=== PATIENT | male | born 1960 | race Caucasian/White ===

== ENCOUNTER 2024-03-08 07:40 | Outpatient (REF) | payer OTHER, SELFPAY ==
[2024-03-08 13:21] LABS: MANUAL DIFF FLAG NO
[2024-03-08 13:51] LABS: Basophils Absolute Auto 0.1 X10*3/uL (0.0-0.2); Basophils Percent Auto 2.7 % (0-2); Eosinophils Absolute Auto 0.2 X10*3/uL (0.0-0.4); Eosinophils Percent Auto 4.6 % (0-4); Hematocrit 45.3 % (42.0-52.0); Hemoglobin 15.1 g/dl (14.0-18.0); Imm Gran Abs Auto 0.02 X10*3/uL (0.00-0.03); Imm Gran Pct Auto 0.4 % (0.0-0.4); Lymphocytes Percent Auto 38.8 % (20-40); Mean Corpuscular HGB Conc 33.3 g/dl (31.0-36.0); Mean Corpuscular Hemoglobin 31.6 pg (27.0-33.0); Mean Corpuscular Volume 94.8 fL (80.0-98.0); Mean Platelet Volume 11.4 fL (9.4-12.4); Monocytes Absolute Auto 0.4 X10*3/uL (0.1-1.2); Monocytes Percent Auto 6.8 % (2-11); Neutrophils Absolute Auto 2.4 x10*3/uL (2.0-8.3); Neutrophils Percent Auto 46.7 % (45-73); Platelet Count 215 X10*3/uL (160-400); Red Blood Count 4.78 X10*6/uL (4.60-5.80); White Blood Count 5.2 X10*3/uL (4.8-10.8)
[2024-03-08 14:11] LABS: Alanine Aminotransferase 22 U/L (0-40); Albumin Level 4.2 g/dL (3.5-5.0); Alkaline Phosphatase 80 U/L (39-117); Anion Gap 9 (12-20); Aspartate Amino Transferase 21 U/L (5-37); Bilirubin Total 0.5 mg/dL (0.0-1.0); Blood Urea Nitrogen 25 mg/dL (9-16); Calcium 9.1 mg/dL (8.4-10.2); Carbon Dioxide 30 mmol/L (22-29); Chloride 107 mmol/L (96-108); Cholesterol 241 mg/dL (<200); Estimated Glomerular Filt Rate > 60; Glucose Random 87 mg/dL (60-115); HDL Cholesterol 58 mg/dL (>40); LDL Cholesterol Calculated 159 mg/dL (<100); Potassium 4.4 mmol/L (3.3-5.1); Sodium 142 mmol/L (135-145); Total Protein 6.7 g/dL (6.5-8.0); Triglycerides 124 mg/dL (<150)
[2024-03-08 14:31] LABS: Vitamin D 25-OH Total 28.9 ng/mL (>30)
== END 2024-03-08 07:41 | disposition home or self-care (01) ==
LOC: HO.MANLDS 07:40
PROVIDERS: Visit Provider Internal Medicine
DX: Z12.5 Encounter for screening for malignant neoplasm of prostate (principal); Z00.00 Encounter for general adult medical examination without abnormal findings; Z13.89 Encounter for screening for other disorder
CPT/HCPCS: 36415; 80053; 80061; 82306; 84153; 85025

== ENCOUNTER 2025-01-10 07:53 | Outpatient (AMB) | payer OTHER, SELFPAY ==
--- OUTSIDE RECORDS SUMMARY | 2025-01-10 07:57 | XMS_ITS | Data Portability ---
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) MDM MODERATE MUST MEET 2 OUT OF 3 ELEMENTS: PROBLEMS, DATA OR RISK ELEMENT 1: PROBLEMS ADDRESSED 1 OR MORE CHRONIC ILLNESS WITH EXACERBATION OR 2 OR MORE STABLE CHRONIC ILLNESSES OR 1 UNDIAGNOSED NEW PROBLEM OR 1 ACUTE ILLNESS W/SYMPTOMS OR 1 ACUTE COMPLICATED INJURY ELEMENT 2: DATA MUST MEET 1 OF 3 CATEGORIES CATEGORY 1: REVIEW OF PRIOR EXTERNAL NOTES, REVIEW OF RESULTS, ORDERING OF EACH TEST, ASSESSMENT REQUIRING INDEPENDENT HISTORIAN OR CATEGORY 2: INDEPENDENT INTERPRETATION OF TESTS BY ANOTHER PHYSICIAN OR SPECIALIST OR CATEGORY 3: DISCUSSION OF MGT OR TEST INTERPRETATION W/EXTERNAL PHYSICIAN OR SPECIALIST ELEMENT 3: RISK RISK OF COMPLICATIONS AND/OR MORBIDITY OR MORTALITY OF PATIENT MANAGEMENT PROVIDER MUST THOROUGHLY DOCUMENT EACH ELEMENT THAT IS COVERED Not available 03/03/2024 10:07:40 Plan of Treatment Reminders Order Date Submit Date Provider Last Modified By Organization Details Last Modified Time Details Appointments ANNUA L EXAM 2024 11:30A M DR CONNELLY Not available Not available Not available Lab CMP, serum or plasm a 2023 024 [facility], [address] [place] [address], [place], [address], 03/09/2024 11:09:37 PSA, serum or plasm a 2023 024 [facility], [address] [place] [address], [id number], 03/09/2024 11:09:37 CBC w/ auto diff 2023 024 [facility], [address] [place] [address], [place], [address], 03/09/2024 11:09:38 lipid panel , blood 2023 024 [facility], [address] [place] [address], [address], 03/09/2024 11:09:37 vitam in D, 25-hy droxy , total , serum 2023 024 [facility], [address] [place] [address], [place], [address], 03/09/2024 11:09:37 Referral gastr flakita russo ist refer ral 2023 024 [facility], [address] [place] [address], [facility], [place], [address], 04/03/2024 08:07:48 Procedures None recor ded. Surgeries None recor ded. Imaging CT, heart , w/o contr ast, w/ coron dez calci um score 2023 [facility], [facility] [place], [address], 03/15/2024 08:53:53 Medication Orders napro xen 500 mg table t 2019 020 [id number], [address], [place], [id number], 03/08/2020 15:35:53 Patient TargetsNo targets recorded. Patient Instructions Encounter Date Encounter Id Patient Instructions Last Modified By Organization Details Last Modified Time 11/01/2019 [id number] calf strain: rehab exercises [email or web address] Not available 11/01/2019 10:56:12 03/03/2024 [id number] colonoscopy: before your procedure Not available 03/03/2024 10:14:55 colonoscopy: wha t to expect at home Not available 03/03/2024 10:14:55 Reason for Referral [facility] Referral for Screening for malignant neoplasm of colon screening colonoscopy Referring Physician: Amilcar Connelly, Internal Medicine, Encounter Date: 03/03/2024 Results Created Date Observation Date Name Description Value Unit Range Abnormal Flag Note LastModifiedBy Organization Detail LastModifiedTime 04/18/20 24 04/17/2024 CT, heart , w/o contr ast, w/ coron dez calci um score No observ ation record ed. [email or web address] Not Available 10/2023 10:23:31 Result Notes None recorded. Problems Name Problem SNOMED Code Status Onset Date Resolution Date Notes Provider Name and Address Organization Details Recorded Time Tinnitus of right ear 602924464910 8 Active 2023 Amilcar Connelly, [address], [address], [facility] 10:09:35 Problem Notes None recorded. Procedures Surgical History Date Name Laterality Status Provider Name and Address Organization Details Recorded Time 020 Arthrocentesis Major Joint/Bursa completed Amilcar Connelly [address], [place], [address], [facility] 03/08/2020 16:16:26 020 Arthrocentesis Major Joint/Bursa completed December Ryanne [address], [address], [facility] 12/27/2019 10:17:59 Imaging Results Imaging Date Name Status LastModified by Organiz ation Details LastModified Time 04/17/2024 CT, heart, w/o contrast, w/ coronary calcium score completed [email or web address] Information not available 04/21/2024 10:23:31 Procedure Notes None recorded. Medical Equipment None Reported. Allergies No known drug allergies Medications Name Sig Start Date Stop Date Status Note LastModified by Organization Details LastModified Time naproxen 500 mg tablet Take 1 tablet twice a day by oral route for 10 days. 2019 completed Not Available Not Available Not Available vit B complex 100 combo no.2 active Not Available Not Available Not Available Vitals Date Recorded Body height Body mass index (BMI) Body weight Heart rate Oxygen saturation Oxygen saturation in Arterial blood by Pulse oximetry Systolic blood pressure Diastolic blood pressure Provider Name and Address Organization Details Last Updated DateTime 0 179.07 cm 29.8 kg/m2 30717.9 9 g 68 /min 98 % 98 % 130 mm[Hg] 72 mm[Hg] Giselle Syed [facility] 0 10:34:21 Date Recorded Body height Body mass index (BMI) Body weight Heart rate Oxygen saturation Oxygen saturation in Arterial blood by Pulse oximetry Systolic blood pressure Diastolic blood pressure Provider Name and Address Organization Details Last Updated DateTime 0 179.07 cm 30.5 kg/m2 53912.8 7 g 62 /min 98 % 98 % 130 mm[Hg] 72 mm[Hg] Viktoriya Griffin [facility] 0 09:35:58 Date Recorded Body height Provider Name an d Address Organization Details Last Updated DateTime 03/08/2020 179.07 cm Sukh Rossi O [address] [place] [address], [phone], [facility] 03/08/2020 15:35:43 Date Recorded Body height Body mass index (BMI) Body weight Heart rate Respiratory rate Oxygen saturation Oxygen saturation in Arterial blood by Pulse oximetry Systolic blood pressure Diastolic blood pressure Provider Name and Address Organization Details Last Updated DateTime 4 180.34 cm 29.1 kg/m2 48151.8 1 g 57 /min 16 /min 97 % 97 % 138 mm[Hg] 80 mm[Hg] Pantera Goodman [facility] 4 09:24:14 Social History Question Answer Notes LastModified by Organizat ion Details LastModified Time Tobacco Smoking Status Never Smoker Not Available [facility] 07/23/2020 03:36:24 What Is Your Level Of Alcohol Consumption? Occasional Information not available 03/03/2024 What Was The Date Of Your Most Recent Tobacco Screening? 03/03/2024 Information not available 03/03/2024 Sex: Unknown Functional Status None recorded. Mental Status None recorded. Family History Nothing Reported. Medical History No medical history recorded. Immunizations Vaccine Type Date Status Note Provider Nam e and Address Organization Details Recorded Time COVID-19, mRNA, LNP-S, PF, 30 mcg/0.3 mL dose 08/06/2021 completed Amilcar Connelly, Sukh O [address] [place], [address], [facility] 08/07/2021 18:37:52 Past Encounters Encounter ID Performer Location Encounter Start Date Encounter Closed Date Diagnosis/Indication Diagnosis SNOMED-CT Code Diagnosis ICD10 Code Diagnosis Note [id number] [facility] [address] [facility] [address] 11/01/2019 10:27:40 11/01/2019 10:59:31 Pain of left calf 6284030926 820856 M79.662 Strain of calf muscle 28 6856625 S86.111A aggressive resting icing and NSAIDS consider PT in a couple weeks if not improving [id number] [facility] [address] [facility],[place] [address] 12/27/2019 09:29:35 12/27/2019 10:38:10 Bursitis of knee 024627581 M70.50 rice [id number] Amilcar Connelly [address],[place] [address] 03/08/2020 15:22:18 03/08/2020 16:20:26 Prepatellar bursitis of left knee 8441874707 21184 M70.42 tolerated procedure very well wound infection precaution s given [id number] Amilcar Connelly [facility] Internal [facility] [address] [facility],[place] [address] 03/03/2024 09:13:17 03/03/2024 10:21:04 Depression screening 276842203 Z13.31 Tinnitus of right ear 48 66767959 108 H93.11 consider referral to [facility] Adult [facility] th examination 319606622 Z00.00 Screening for malignant neoplasm of colon 198462534 Z12.11 Health Concerns Section Related Observation LastModified by Organization Detai ls LastModified Time None Recorded Concern Status LastModified by Organization Details LastModified Time None Recorded Advance Directives Directive None Recorded Payers Encounter Date Sequence Insurance Name Policy Number Policy De Paz Covered Member ID De Paz Member ID Guarantor Name 11/01/2019 1 [facility] [id number] Gabriel Colbyond [id number] Gabriel Méndez Gelacio 12/27/2019 1 [facility] [id number] Gabriel Brizuela [id number] Gabriel Brizuela 03/08/2020 1 [facility] [id number] Gabriel Colbyond [id number] Gabriel Brizuela 03/03/2024 1 [facility] DIRECT CONNECTORC[facility] TYPE I (HMO) [id number] Gabriel Brizuela [id number] Gabriel Brizuela Notes Date Note Type Note Provider Name a nd Address Organization Details Recorded Time 11/01/2019 text/html c/o left calf pain x started a week ago while skiing, hit some heavy snow and bidings released, and felt the pain instantly. went to the urgent care the next day and they dx'd him with a calf strain, told him to rest and ice it. no meds rx'd no imaging done. still having the calf pain, swelling hasn't improved, there is some bruising since wednesday, down in the ankle, pain in the posterior mid calf area. trying to rest it, still able to walk on it, but there is some discomfort depending on how fast he is walking 12 system ROS negative except where noted above- denies: chest pain, palpitations, sob, ankle swelling, visual problems, hearing problems, muscle aches or pains, numbness or tingling extremities, abdominal pain, bowel issues, bladder issues, sexual dysfunction, abnormal bleeding, sx of sinus/respirator y infection , headaches, dizziness/lighth eadedness, rashes, or nail changes. December ASHLI Pearl [address] [place] [address], [phone], [facility] 11/01/2019 10:58:26 12/27/2019 text/html left knee swelling, fell, at one point had some pain, none anymore 12 system ROS negative except where noted above- denies: chest pain, palpitations, sob, ankle swelling, visual problems, hearing problems, muscle aches or pains, numbness or tingling extremities, abdominal pain, bowel issues, bladder issues, sexual dysfunction, abnormal bleeding, sx of sinus/respirator y infection , headaches, dizziness/lighth eadedness, rashes, or nail changes. ASHLI Grewal [address] [place], [address], [facility] 12/27/2019 10:18:55 03/08/2020 text/html here for drainage of his left knee bursitis pt relates that this has happened in the past and is back again after kneeling on it felt a funny twinge in it and 2 days later became very swollen and sl tender relates that he is notably more swollen now than before Amilcar Connelly DO [address] [place], [address], [facility] 03/08/2020 16:18:59 03/03/2024 text/html here for a check up no major problems and does not have any major pmhx nor does he have family hx of major illnesses siblings are all oksome bpbut otherwise is doing greatnote he has gotten a buzzing in his right ear over the last 6 months Amilcar Connelly DO [address] [place], [address], [facility] 03/03/2024 10:16:46
--- NOTE | 2025-01-10 08:01 | A.OFFVIS_ITS ---
Vital Signs 01/10/25 08:14 Height 5 ft 10 in Weight 216 lb 14.958 oz BMI 31.1 BP 138/66 Blood Pressure Location Rt brachial Position Sitting Pulse 62 Pulse Source Pulse Oximeter Pulse Oximetry (%) 97 Oxygen Delivery Method Room Air Intake Visit Reasons: Colonoscopy Screening Intake Note: NEW PATIENT for initial colo screening? No mention per PCP. Chief Complaint; No GI sx or concerns per pt. Pt denies any pertinent FMHx to their knowledge. Gastroenterology Manager Required: No Accompanied by: Self / Same As Patient Allergies No Known Allergies Allergy (Verified 01/10/25 08:01) HPI HPI Colonoscopy Screening: Details: 64 year old? male is here today for pre colonoscopy screening.? Patient was sent to us by his PCP.? This is his first colonoscopy screening.? Patient denies any gastrointestinal symptoms in the past or at present.? Denies any personal or family history of gastrointestinal disease, colon polyps, or CRC.? Denies history of difficulty with sedation or anesthesia in the past.? Negative for history of sleep apnea.? Denies any history of cardiac, renal, pulmonary, or hepatic disease.?? No history of infectious? diseases like hepatitis A, B, C, HIV or tuberculosis.? Patient is not on any anticoagulation PFSH Surgical History S/P arthrocentesis Social History Alcohol intake: former Patient Tobacco Use Status: Never used Tobacco Review of Systems Const Denies weight gain and Denies weight loss ENT Reports no additional complaints, Denies dysphagia and Denies odynophagia Card Reports no additional complaints Resp Reports no additional complaints GI Denies abdominal pain, Denies belching, Denies melena, Denies bloating, Denies change in bowel habits, Denies dysphagia, Denies excessive flatus, Denies dyspepsia, Denies heartburn, Denies diarrhea, Denies loose stools, Denies nausea, Denies odynophagia and Denies vomiting Reports no additional complaints Musc Reports no additional complaints Neuro Reports no additional complaints Psych Reports no additional complaints Endo Reports no additional complaints Physical Exam Const General: healthy appearing, no acute distress and well developed Nutritional Appearance: well nourished Orientation/consciousness: patient oriented x3 Resp Effort & Inspection: normal respiratory effort, able to speak in complete sentences, no tracheal deviation and symmetric chest movement Auscultation: clear to auscultation bilaterally Cardio Rate: regular rate GI Inspection: Yes normal to inspection and No distended Palpation (GI): Soft to palpation, not firm, nontender and No hepatosplenomegaly present Auscultation: normal bowel sounds General: Yes no CVA tenderness Back/Spine/Pelvis Back: no CVA tenderness Skin General skin exam: elasticity normal, turgor normal and dry skin Neuro General: patient oriented x3 Psych Appearance: grossly normal Mental Status: mental status grossly normal Assessment & Plan Assessment & Plan (1) Screen for colon cancer: Code(s): Z12.11 - Encounter for screening for malignant neoplasm of colon Plan Patient denies any GI, cardiac or respiratory symptoms.? Denies any issues with anesthesia in the past.? Denies any history of sleep apnea.? No history infectious diseases in the past or present.? Not on any anticoagulation therapy.? No family or personal history of colon cancer or polyps.? Patient denies melena, hematochezia, unintentional weight loss or ribbon like stools.? Discussed at length the pre-procedure,? prep, diet & medications as well as what to expect prior, during and after the procedure.?? Stressed the importance of good bowel prep.? Recommended the use of Vaseline or Calmoseptine OTC & baby wipes with bowel movements to promote comfort.? ?Patient verbalizes understanding and agrees to plan of care.? He was given the opportunity to ask questions and all questions answered.? We will see him after the procedure.? Medications: New polyethylene glycol 3350 (Miralax) As directed by gastroenterology department at [facility] 238 grams PO ONCE 238 grams 0RF Z12.11 - Encounter for screening for malignant neoplasm of colon bisacodyl (Dulcolax (bisacodyl)) take 4 tabs at noon the day before your colonoscopy 20 mg (4 x 5 mg) PO ONCE 1 day 4 tabs 0RF Z12.11 - Encounter for screening for malignant neoplasm of colon Coding Level of Care Code New Pt Level 3 (52509) Diagnoses Screen for colon cancer Z12.11 Time Spent (min) 40 Comment 30 minutes spent with patient and additional 10 minutes spent reviewing his records
[2025-01-10 08:14] VITALS: BP 138/66; PULSE 62; O2SAT 97; BMI 31.1
== END 2025-01-10 08:25 | disposition home or self-care (01) ==
LOC: HO.HGI 07:54
PROVIDERS: PCP Internal Medicine; Visit Provider Nurse Practitioner Family
DX: Z01.818 Encounter for other preprocedural examination (principal); Z12.11 Encounter for screening for malignant neoplasm of colon
CPT/HCPCS: 99202

== ENCOUNTER → 2025-01-10 07:53 | Outpatient (BNVA) | payer OTHER, SELFPAY | PROVIDERS: PCP Internal Medicine; Visit Provider Nurse Practitioner Family | DX: Z01.818 Encounter for other preprocedural examination (principal) | CPT/HCPCS: 99202 ==

== ENCOUNTER 2025-08-15 10:26 | Day surgery (SDC) | payer MEDICARE, SELFPAY ==
--- OUTSIDE RECORDS SUMMARY | 2025-07-16 13:08 | XMS_ITS | Clinical Summary ---
Author Organization [facility] Address [address] [place] [phone] Phone Care Team Providers Care Alcohol Still Operator Name Role Phone SahiljuanAmilcar DO Primary Care Provider [phone] Allergies No known active allergies Medications No known medications Social History Tobacco Use Types Packs/Day Years Used Date Smoking Tobacco: Never Smokeless Tobacco: Never Education Answer Date Recorded Are you interested in more education? Not on mandeep e 01/15/2023 Are you concerned about learning? Not on file 01/15/2023 No 01/15/2023 No 01/15/2023 Digital Access Answer Date Recorded No 02/13/2023 No 02/13/2023 No 02/13/2023 Reliable internet access at home? Not on file 02/13/2023 Device with a working camera? Not on file Sex and Gender Information Value Date Recorded Sex Assigned at Male 10/25/2019 9:02 AM EST Legal Sex Male 9:48 PM EDT Gender Identity Male 10/25/2019 9:02 AM EST Sexual Orientation Straight 10/25/2019 9: 02 AM EST Last Filed Vital Signs Vital Sign Reading Time Taken Comments Blood Pressure 120/73 10/25/2019 9:17 AM EST Pulse 68 10/25/2019 9:17 AM EST Temperature 36.7 C (98.1 F) 10/25/2019 9:17 AM EST Respiratory Rate 18 10/25/2019 9:17 AM EST Oxygen Saturation 98% 10/25/2019 9:17 AM EST Inhaled Oxygen Concentration - - Weight - - Height 180.3 cm (5' 11 ) 10/25/2019 9:17 AM EST Body Mass Index - - Plan of Treatment Health Maintenance Due Date Last Done Comments Adult Td,Tdap Booster 1960 LIPID PANEL 1960 DEPRESSION SCREENING 1972 HEPATITIS C SCREENING 1978 HIV ONE-TIME SCREENING (18-6 5 YEARS) 1978 COLOGUARD 2005 COLONOSCOPY 2005 COLORECTAL CANCER SCREENING 2005 FIT TEST 2005 FOBT 2005 SIGMOIDOSCOPY 2005 VIRTUAL COLONOSCOPY 2005 PNEUMOCOCCAL VACCINES (50+ y ears) (1 of 1 - PCV) 2010 ZOSTER VACCINES (1 of 2) 2010 INFLUENZA VACCINE (#1) 2025 COVID-19 VACCINE (2 - 2024-2 6 season) 2025 12/16/2020 RSV VACCINE (1 - 1-dose 75+ series) 2035 SMOKING STATUS SCREENING (On ce After 26 Yrs) Completed 10/25/2019 HEPATITIS A VACCINES Aged Out No long er eligible based on patient's age to complete this topic HIB VACCINES Aged Out No longer eligi ble based on patient's age to complete this topic MENINGOCOCCAL VACCINES (ACWY) Aged Out No longer eligible based on patient's age to complete this topic MENINGOCOCCAL VACCINES (B) Aged Out N o longer eligible based on patient's age to complete this topic Medical Devices Not on file Insurance [facility] [employer] PLANS DIRECT [employer] PLANS DIRECT PLANS DIRECT PLANS DIRECT [employer] PLANS DIRECT [employer] PLANS DIRECT PLANS DIRECT PLANS DIRECT [facility] [employer] [facility] DIRECT Care Teams Alcohol Still Operator Relationship Specialty Start Date End Date Amilcar Chacon DO [email or web address] PCP - General Internal Medicine 10/25/19 Additional Source Comments The information contained in this document represents components of the legal health record. It is not the complete legal health record.[facility]
--- OUTSIDE RECORDS SUMMARY | 2025-07-16 13:09 | XMS_ITS | Data Portability ---
Author Organization [facility], Telehealth Patient Home Address [address] [place] [address] Assessment Encounter Date Assessment Date Assessment LastModified by Organization Details LastModified Time 03/03/2024 03/03/2024 [id number] [place] [id number] (CORPORATE RESPONSIBILITY OFFICER) MDM MODERATE MUST MEET 2 OUT OF [...] THOROUGHLY DOCUMENT EACH ELEMENT THAT IS COVERED [email or web address] Not available 03/03/2024 10:07:40 Plan of Treatment Reminders Order Date Submit Date Provider Last Modified By Organization Details Last Modified Time Details Appointments None recorde d. Lab lipid panel, blood 2024 025 [facility], [address] [place] [address], [place], [address], 5 14:34:27 vitamin D, 25-hydr oxy, total, serum 2024 025 [facility], [address] [place] [address], [place], [address], 5 14:34:27 CBC w/ auto diff 2024 025 [facility], [address] [place] [address], [address], 5 14:34:27 CMP, serum or plasma 2024 025 [facility], [address] [place] [address], [address], 5 14:34:27 PSA, serum or plasma 2024 025 [email or web address] [facility], [address] [place] [address], [address], 5 14:34:27 CMP, serum or plasma 2023 024 [facility], [address] [place] [address], [address], 4 11:09:37 PSA, serum or plasma 2023 024 [facility], [address] [place] [address], [address], 4 11:09:37 CBC w/ auto diff 2023 024 [facility], [address] [place] [address], [address], 4 11:09:38 lipid panel, blood 2023 024 [facility], [address] [place] [address], [address], 4 11:09:37 vitamin D, 25-hydr oxy, total, serum 2023 024 [facility], [address] [place] [address], [address], 4 11:09:37 Referral gastroe nterolo gist referra l 2023 024 [facility], [address], [place], [address], 4 08:07:48 Procedures None recorde d. Surgeries None recorde d. Imaging CT, heart, w/o contras t, w/ coronar y calcium score 2023 024 [facility], [address] [place], [address], 4 08:53:53 Medication Orders naproxe n 500 mg tablet 2019 020 [id number], [address], [place], [id number], 0 15:35:53 Patient TargetsNo targets recorded. Patient Instructions Encounter Date Encounter Id Patient Instructions Last Modified By Organization Details Last Modified Time 11/01/2019 [id number] calf strain: rehab exercises [email or web address] Not available 11/01/2019 10:56:12 03/03/2024 [id number] colonoscopy: before your procedure Not available 03/03/2024 10:14:55 colonoscopy: wha t to expect at home Not available 03/03/2024 10:14:55 Reason for Referral Housing Management Representative Referral for Screening for malignant neoplasm of colon screening colonoscopy Referring Physician: Amilcar Chacon, Internal Medicine, Encounter Date: 03/03/2024 Results Created Date Observation Date Name Description Value Unit Range Abnormal Flag Note LastModifiedBy Organization Detail LastModifiedTime 04/18/20 24 04/17/2024 CT, heart , w/o contr ast, w/ coron dez calci um score No observ ation record ed. [email or web address] Not Available 01/23 11:47:40 Result Notes None recorded. Problems Name Problem SNOMED Code Status Onset Date Resolution Date Notes Provider Name and Address Organization Details Recorded Time Tinnitus of right ear 289502622717 8 Active 2023 Amilcar Chacon, DO [address] [facility], [place], [address], [facility] 4 10:09:35 Problem Notes None recorded. Procedures Surgical History Date Name Laterality Status Provider Name and Address Organization Details Recorded Time 020 Arthrocentesis Major Joint/Bursa completed Amilcar Chacon DO [address] [facility], [place], [address], [facility] 03/08/2020 16:16:26 020 Arthrocentesis Major Joint/Bursa completed December Ryanne, ASHLI [address] [place], [address], [facility] 12/27/2019 10:17:59 Imaging Results None recorded. Procedure Notes None recorded. Medical Equipment None [...] in Arterial blood by Pulse oximetry Systolic And Diastolic Provider Name and Address Organization Details Last Updated DateTime 0 179.07 cm 29.8 kg/m2 63823.9 9 g 68 /min 98 % 98 % 130/72 mm[Hg] Giselle Syed [facility] 0 10:34:21 Date Recorded Body height Body mass index (BMI) Body weight Heart rate Oxygen saturation Oxygen saturation in Arterial blood by Pulse oximetry Systolic And Diastolic Provider Name and Address Organization Details Last Updated DateTime 0 179.07 cm 30.5 kg/m2 24329.8 7 g 62 /min 98 % 98 % 130/72 mm[Hg] Viktoriya Griffin [facility] 0 09:35:58 Date Recorded Body height Body mass index (BMI) Body weight Heart rate Oxygen saturation Oxygen saturation in Arterial blood by Pulse oximetry Systolic And Diastolic Provider Name and Address Organization Details Last Updated DateTime 5 180.34 cm 29.1 kg/m2 02176.8 1 g 75 /min 98 % 98 % 118/74 mm[Hg] Antionette Beckmanmond [facility] 5 11:28:40 Date Recorded Body height Body mass index (BMI) Body weight Heart rate Respiratory rate Oxygen saturation Oxygen saturation in Arterial blood by Pulse oximetry Systolic And Diastolic Provider Name and Address Organization Details Last Updated DateTime 4 180.34 cm 29.1 kg/m2 14363.8 1 g 57 /min 16 /min 97 % 97 % 138/80 mm[Hg] Pantera Houstonin [facility] 4 09:24:14 Date Recorded Body height Provider Name an d Address Organization Details Last Updated DateTime 03/08/2020 179.07 cm Sukh Rossi [address] [place], [address], [facility] 03/08/2020 15:35:43 Social History Question Answer Notes LastModified by Watch-Sitesizat ion Details LastModified Time Tobacco Smoking Status Never Smoker Not Available [facility] 03:36:24 What Was The Date Of Your Most Recent Tobacco Screening? 01/23/2025 [email or web address] Information not available 01/23/2025 Sex: Unknown Functional Status Question Answer Note LastModified by Organizat [employer] Details LastModified Time Do you or have you ever used any other forms of tobacco or nicotine? No [email or web address] Information not available 01/23/2025 What is your level of alcohol consumption? Occasional [email or web address] Information not available 03/03/2024 Mental Status None recorded. Family History Nothing Reported. Medical History No medical history recorded. Immunizations Vaccine Type Date Status Note Provider Nam e and Address Organization Details Recorded Time COVID-19, mRNA, LNP-S, PF, 30 mcg/0.3 mL dose 08/06/2021 completed Sukh Rossi [address] [place], [address], [facility] 08/07/2021 18:37:52 Past Encounters Encounter ID Performer Location Encounter Start Date Encounter Closed Date Diagnosis/Indication Diagnosis SNOMED-CT Code Diagnosis ICD10 Code Diagnosis IMO Codes Diagnosis Note [id number] Amilcar Chacon DO [facility] [address] [facility],[place] [address] 11/01/2019 10:27:40 11/01/2019 10:59:31 Pain of left calf 6890202254 157212 M79.662 Strain of calf muscle 28 0390598 S86.111A aggressive resting icing and NSAIDS consider PT in a couple weeks if not improving [id number] Amilcar Chacon [facility] [address] [facility], [place] [address] 12/27/2019 09:29:35 12/27/2019 10:38:10 Bursitis of knee 168654575 M70.50 rice [id number] Amilcar [facility] [address] [facility],[place] [address] 03/08/2020 15:22:18 03/08/2020 16:20:26 Prepatellar bursitis of left knee 8207444094 49773 M70.42 tolerated procedure very well wound infection precaution s given [id number] [facility] [address] [facility], [place] [address] 03/03/2024 09:13:17 03/03/2024 10:21:04 Depression screening 683123980 Z13.31 Tinnitus of right ear 48 50263917 108 H93.11 consider referral to [facility] examination 498955514 Z00.00 Screening for malignant neoplasm of colon 714314092 Z12.11 [id number] [facility] [address] [facility], [place] [address] 01/23/2025 11:15:08 01/23/2025 12:19:31 Active or passive immunization 267078960 Z23 utd Screening for cardiovascular system disease 498804687 Z13.6 Screening for malignant neoplasm of colon 573088929 Z12.11 colonoscop y Preventive procedure 169 911713 Z00.00 [id number] doing welll Health Concerns Section Related Observation LastModified by Organization Detai ls LastModified Time None Recorded Concern Status LastModified by Organization Details LastModified Time None Recorded Advance Directives Directive None Recorded Payers Insurance Date Sequence Insurance Name Policy Number Policy De Paz Covered Member ID De Paz Member ID Guarantor Name 01/23/2025 1 [facility] [id number] Gabriel Brizuela [id number] Gabriel Brizuela 01/23/2025 1 [facility] [id number] Gabriel Brizuela [id number] Gabriel Brizuela Notes Date Note Type Note Provider Name a nd Address Organization Details Recorded Time 0 text/html ROS as noted in the HPI c/o left calf pain x started a [...] issues, sexual dysfunction, abnormal bleeding, sx of sinus/respiratory infection , headaches, dizziness/lightheaded ness, rashes, or nail changes. [address], [address], [facility] 11/01/2019 10:58:26 0 text/html ROS as noted in the HPI left knee swelling, fell, at one point had some pain, none anymore 12 system ROS negative except where noted above- denies: chest pain, palpitations, sob, ankle swelling, visual problems, hearing problems, muscle aches or pains, numbness or tingling extremities, abdominal pain, bowel issues, bladder issues, sexual dysfunction, abnormal bleeding, sx of sinus/respiratory infection , headaches, dizziness/lightheaded ness, rashes, or nail changes. [address], [address], [facility] 12/27/2019 10:18:55 0 text/html ROS as noted in the HPI here for drainage of his left knee bursitis pt relates that this has happened in the past and is back again after kneeling on it felt a funny twinge in it and 2 days later became very swollen and sl tender relates that he is notably more swollen now than before Amilcar Chacon DO [address] [place], [address], [facility] 03/08/2020 16:18:59 4 text/html ROS as noted in the HPI here for a check up no major problems and does not have any major pmhx nor does he have family hx of major illnesses siblings are all oksome bpbut otherwise is doing greatnote he has gotten a buzzing in his right ear over the last 6 months Amilcar Chacon DO [address] [place], [address], [facility] 03/03/2024 10:16:46 5 text/html Annual WellnessReported by PatientSocial/Behavio ral HistoryFor diet and nutrition, patient reportshealthy diet. For fracture risk, patient reportsno history of fractures,no recent explained fracture,no sudden unexplained fractures, andno previous musculoskeletal injuries. For physical activity, patient reportsexercises on a regular basis,recent increase in physical activity, andgood physical condition. For additional lifestyle factors, patient reportsno tobacco use,no alcohol intake, andstopped drinking alcohol.Mental Status:For depression risk, patient reportsnever feels sad, empty, or tearful,no loss of interest in activities,no significant changes in weight,no sleep disturbances or insomnia,no agitation,no loss of energy,no feelings of worthlessness or guilt,no thoughts of suicide,no history of depression, andno history of mood disorders.Functional AbilityFor hearing, patient reportsno loss of hearing. For vision, patient reportsno vision problems.ROS as noted in the HPI Amilcar Chacon DO [address] [place], [address], [facility] 01/23/2025 13:51:28
--- NOTE | 2025-08-14 10:16 | HO.ANESPROP2 ---
Documented by User: Susu Pratt NP 08/14/25 10:16 HPI - Anesthesia Eval Consult details Narrative: 65 yr old male for colonoscopy [facility] Surgical History Surgical History History of hernia surgery S/P arthrocentesis Social History Social History Alcohol intake: former Patient Tobacco Use Status: Never used Tobacco Use of substances other than those prescribed or required for medical reasons: No Advance Directives: No Advance Directives Information Provided: Yes Meds Allergies Allergy/AdvReac Type Severity Reaction Status Date / Time No Known Allergies Allergy Verified 01/10/25 08:01 Home Medications ?Medication ?Instructions ?Recorded ?Confirmed ?Last Taken ?Type naproxen 500 mg tablet 500 mg PO BID 01/04/25 Unknown History vitamin B complex 1 cap PO DAILY 01/04/25 Unknown History Documented by User: Rowena Almaraz MD 08/15/25 12:18 [facility] Surgical History Surgical History History of hernia surgery S/P arthrocentesis History of Problems with Anesthesia: No Social History Social History Alcohol intake: former Patient Tobacco Use Status: Never used Tobacco Use of substances other than those prescribed or required for medical reasons: No Advance Directives: No Advance Directives Information Provided: Yes Meds Allergies Allergy/AdvReac Type Severity Reaction Status Date / Time No Known Allergies Allergy Verified 01/10/25 08:01 Home Medications ?Medication ?Instructions ?Recorded ?Confirmed ?Last Taken ?Type naproxen 500 mg tablet 500 mg PO BID 01/04/25 Unknown History vitamin B complex 1 cap PO DAILY 01/04/25 Unknown History Exam Airway Mallampati Class: III TM Dist: >3cm Neck ROM: Full Loose/Missing/Broken Teeth: No and Upper Heart: RRR Lungs: CTA Assessment and Plan Assessment Anesthesia Assessment: Anesthesia Plan Discussed and Chart Reviewed Final Anesthetic Review History of Problems with Anesthesia: No NPO: Yes ASA Class: I Final Preanesthetic Review: Meds/Allgs Chart Reviewed, Consent Obtained/Reviewed and Anes Risks/Benef Reviewed Patient Risk: Low Procedure Risk: Low Anesthetic Plan Anesthetic Plan: MAC: Disposition: Standard PACU
[2025-08-15 10:49] VITALS: BMI 28.9
[2025-08-15 11:08] VITALS: BP 150/78; PULSE 80; RESP 16; TEMP 36.8; O2SAT 96
[2025-08-15] MEDS: Lactated Ringers 1,000 ML 100 ML IVCONT (11:09)
--- NOTE | 2025-08-15 12:13 | MHC.SHP ---
Pre-Procedural Eval Section A - 24 Hr Update-Section A only Date of Service: 08/15/25 Section B - Complete if H&P > 30 days Chief Complaint: screening Relevant Family History (Specify if Yes): No Relevant Social History: None Present Medications: see Short Stay Collaborative assessment Medical History: Significant History (S/P arthrocentesis) History of Previous Operations: Relevant previous surgery/procedure and date(s) (S/P arthrocentesis) Allergies: Allergies Allergy/AdvReac Type Severity Reaction Status Date / Time No Known Allergies Allergy Verified 01/10/25 08:01 Review of Systems Sugical H&P ROS: Negative: Constitution, Cardiovascular, Respiratory, Neurological, Psychiatric, Hem-Onc, Allergic/Immunologic, Gastrointestinal, Genitourinary, Musculoskeletal, Integumentary, Endocrine and Eyes/Ears/Nose/Throat Exam Surgical H&P Exam: Normal: HEENT, Normal: Heart, Normal: Lungs, Normal: Extremities, Normal: Abdomen, Normal: Skin and Normal: Neurological Plan Diagnosis/Plan: Unchanged I have reviewed the history and physical and performed a pertinent physical examination on my patient. No changes have occurred unless specified. Time Spent With Patient Time: Total time managing care of this patient today ____ minutes.
--- NOTE | 2025-08-15 12:49 | P.OPN-COLO_ITS ---
Colonoscopy Operative Note Operative Note Date of Service: 08/15/25 Narrative: Operative Information Procedure Description: Colonoscopy Indication: screening Anesthesia: MAC COLONOSCOPY Instrument: Olympus variable stiffness pediatric scope 190L Colonoscopy Monitoring: Vital signs and clinical assessment, continuous EKG monitoring, Pulse oximetry, Carbon Dioxide monitoring and blood pressure monitoring were done throughout the procedure. Colon withdrawal time was 13 minutes. Procedure: The patient was placed in the left lateral decubitis position and pre-procedure medications were administered. After a digital rectal examination of the ano-rectum, the video colonoscope was inserted into the rectum and advanced through the colon to the cecum/TI. The colonoscope was slowly withdrawn in a retrograde panoramic fashion and the colon mucosa was carefully examined including a retroflexed view of the rectum. Findings and interventions are described below. Procedure Difficulty: easy Findings: Terminal Ileum-normal Cecum:normal Ascending Colon: normal Transverse Colon - x 2 sessile polyps 8-10 mm lifted with eleview and removed with cold snare Descending Colon:normal Sigmoid Colon: moderate severe diverticulosis Rectum: Retroflexion with small internal hemorrhoids seen, grade I Anorectum - normal Intervention: cold snare and eleview Colon preparation: [place] Bowel Preparation Scale Right colon; 2 Transverse colon: 2 Left colon; 2 (0 = Unprepared colon segment with mucosa not seen due to solid stool that cannot be cleared. 1 = Portion of mucosa of the colon segment seen, but other areas of the colon segment not well seen due to staining, residual stool and/or opaque liquid. 2 = Minor amount of residual staining, small fragments of stool and/or opaque liquid, but mucosa of colon segment seen well. 3 = Entire mucosa of colon segment seen well with no residual staining, small fragments of stool or opaque liquid) Impression and Post Procedure Diagnosis: diverticulosis colon polyps x 2 internal hemorrhoids Plan: High fiber diet leaflet Avoid straining at stool, epsom salts and sitz bath, anusol supps or cream Repeat Colonoscopy in 5 years due to polyps or earlier if clinically indicated Above findings were reviewed with the patient and relevant handouts were provided if indicated.
[2025-08-15 12:52] VITALS: BP 93/42; PULSE 63; RESP 18; TEMP 36.3; O2SAT 96
[2025-08-15 12:55] VITALS: BP 104/58; PULSE 65; RESP 13; O2SAT 97
[2025-08-15 13:07] VITALS: BP 111/71; PULSE 70; RESP 16; TEMP 36.6; O2SAT 98
== END 2025-08-15 13:34 | disposition home or self-care (01) ==
PROVIDERS: PCP Internal Medicine; Visit Provider Internal Medicine Gastroenterology
PROC: 0DJD8ZZ Inspection of Lower Intestinal Tract, Via Natural or Artificial Opening Endoscopic (ICD-10-PCS; CPT 45378; principal; 2025-08-15 13:10)
DX: Z12.11 Encounter for screening for malignant neoplasm of colon (principal); K57.30 Diverticulosis of large intestine without perforation or abscess without bleeding; K64.0 First degree hemorrhoids; D12.3 Benign neoplasm of transverse colon
CPT/HCPCS: 45385; 45381; 88305; J2003; J2704

== ENCOUNTER → 2025-08-15 10:26 | Outpatient (BNV) | payer MEDICARE, SELFPAY | PROVIDERS: PCP Internal Medicine; Visit Provider Internal Medicine Gastroenterology | DX: Z12.11 Encounter for screening for malignant neoplasm of colon (principal); K63.5 Polyp of colon; K57.30 Diverticulosis of large intestine without perforation or abscess without bleeding; K64.0 First degree hemorrhoids | CPT/HCPCS: 45385 ==